=== PATIENT | male | born 1990 | race African-American/Black ===

== ENCOUNTER 2022-08-06 01:52 | Emergency (ER) | payer MEDICAID, OTHER ==
[~2022-08-06] VITALS: Ht 180.3 cm; Wt 78.0 kg
[2022-08-06] MEDS ORDERED: ONDANSETRON HCL 4MG/2ML INJ IV STA (02:26)
[2022-08-06] MEDS ORDERED: MORPHINE SULFATE 4 MG/ML CPJ (NOT FOR IM USE) IV STA (02:26)
[2022-08-06] MEDS ORDERED: SODIUM CHLORIDE 0.9% 1,000 ML IV ONE (02:30)
[2022-08-06] MEDS ORDERED: BACITRACIN ZINC OINT UDPKT TOP ONE (02:30)
[2022-08-06] MEDS ORDERED: TETANUS, DIPHTHERIA, PERTUSSIS VAC/PF 0.5ML (>10YR OLD) IM ONE (02:30)
[2022-08-06] MEDS ORDERED: CEFAZOLIN 1000MG PREMIX 50 ML IV ONE (02:30)
[2022-08-06 03:18] LABS: BASOPHILS % 0.6 % (0.0-2.0); CHLORIDE 107 mEq/L (98-107); EOSINOPHILS % 0.6 % (0.0-5.0); HEMATOCRIT. 44.1 % (42.0-52.0); HEMOGLOBIN. 14.2 g/dL (14.0-18.0); LYMPHOCYTES % 40.1 % (20.0-50.0); MEAN CORPUSCULAR HEMOGLOBIN 29.6 pg (28.0-32.0); MEAN PLATELET VOLUME 7.2 fl (7.4-10.4); MONOCYTES % 9.2 % (2.0-8.0); NEUTROPHILS % 49.5 % (40.0-76.0); PLATELET 301 x1000/uL (130-400); RED BLOOD CELL COUNT 4.79 mill/uL (4.7-6.1); RED CELL DISTRIBUTION WIDTH 15.2 % (11.6-14.6)
[2022-08-06] MEDS: CEFAZOLIN 1000MG PREMIX 50 ML IV NR ×2 (03:48→04:09)
[2022-08-06] MEDS ORDERED: MIDAZOLAM HCL 2 MG/2 ML VIAL IV ONE (04:00)
[2022-08-06] MEDS ORDERED: ONDANSETRON HCL 4MG/2ML INJ IV ONE (04:45)
[2022-08-06] MEDS ORDERED: KETAMINE HCL 50 MG/ML 10ML IV ONE ×3 (04:45→06:15)
[2022-08-06] MEDS ORDERED: IOHEXOL-300 100 ML BOTTLE ONE (06:41)
[2022-08-06 08:44] LABS: CHLORIDE 106 mEq/L (98-107)
[2022-08-06] MEDS: AMPICILLIN SOD/SULBACTAM NA 3 G in SODIUM CHLORIDE 0.9% 100 ML IV SCH ×2 (15:00→22:00)
[2022-08-06] MEDS ORDERED: NALOXONE HCL 0.4MG/ML VIAL IV PRN (15:00)
[2022-08-06] MEDS ORDERED: ONDANSETRON 4MG ODT PO PRN (15:00)
[2022-08-06] MEDS: HYDROCODONE/ACETAMINOPHEN 5/325MG TABLET PO PRN ×2 (17:46→22:21)
[2022-08-07] MEDS: HYDROCODONE/ACETAMINOPHEN 5/325MG TABLET PO PRN ×2 (01:15→03:37)
[2022-08-07 03:37] VITALS: BP 96/59
== END 2022-08-07 05:18 | disposition short-term general hospital (02) ==
LOC: ER 01:52
DX: S01.112A Laceration without foreign body of left eyelid and periocular area, initial encounter (principal); R51.9 Headache, unspecified; Z20.822 Contact with and (suspected) exposure to COVID-19; V49.9XXA Car occupant (driver) (passenger) injured in unspecified traffic accident, initial encounter; Y93.89 Activity, other specified; Y92.89 Other specified places as the place of occurrence of the external cause; Y99.8 Other external cause status
CPT/HCPCS: 12011; 36415; 70450; 70486; 71045; 72125; 72170; 72192; 73562; 73700; 74177; 80048; 85025; 87426; 90715; 99152; 99291; C9803; J0295; J0690; J2250; J2270; J2405; J3490; J7030; J7050; Q0162; Q9967; Z7610

== ENCOUNTER 2023-03-13 08:51 | Emergency (ER) | payer MEDICAID, OTHER ==
[~2023-03-13] VITALS: Ht 177.8 cm; Wt 60.0 kg
[2023-03-13 09:04] VITALS: BP 117/77; PULSE 81; RESP 19; TEMP 98.1
[2023-03-13] MEDS ORDERED: LIDOCAINE HCL/PF 1% 10 MG/ML 5ML VIAL INFIL ONE (10:00)
== END 2023-03-13 10:26 | disposition home or self-care (01) ==
LOC: ER 08:51
DX: S63.287A Dislocation of proximal interphalangeal joint of left little finger, initial encounter (principal); X58.XXXA Exposure to other specified factors, initial encounter; Y93.89 Activity, other specified; Y92.89 Other specified places as the place of occurrence of the external cause; Y99.8 Other external cause status
CPT/HCPCS: 99285; 26770; 73140; 99152; J3490; 99284

== ENCOUNTER 2024-01-06 22:14 | Emergency (ER) | payer MEDICAID ==
[~2024-01-06] VITALS: Ht 177.8 cm; Wt 68.0 kg
[2024-01-06 22:46] VITALS: BP 109/71; PULSE 74; RESP 18; TEMP 98; O2SAT 100
[2024-01-07] MEDS ORDERED: TOPUD PO
== END 2024-01-07 00:20 | disposition home or self-care (01) ==
LOC: ER 22:14
DX: M79.645 Pain in left finger(s) (principal)
CPT/HCPCS: 73130; 99283

== ENCOUNTER 2024-10-19 07:39 | Emergency (ER) | payer MEDICAID, OTHER ==
[~2024-10-19] VITALS: Ht 180.3 cm; Wt 68.0 kg
[~2024-10-19 07:39] MED LIST: TOPUD PO
[2024-10-19 07:49] VITALS: O2SAT 98
[2024-10-19 07:50] VITALS: BP 114/51; PULSE 73; RESP 14; TEMP 36.9; O2SAT 97
[2024-10-19] MEDS ORDERED: METH-653 MT (08:06)
[2024-10-19] MEDS: IBUPROFEN 600MG TABLET PO ONE (08:17)
== END 2024-10-19 08:21 | disposition home or self-care (01) ==
LOC: ER 08:13
DX: M54.50 Low back pain, unspecified (principal); F10.90 Alcohol use, unspecified, uncomplicated; Z79.899 Other long term (current) drug therapy; Z98.890 Other specified postprocedural states; Y90.9 Presence of alcohol in blood, level not specified
CPT/HCPCS: 99283

== ENCOUNTER 2025-05-27 09:19 | Inpatient (IN) | payer MEDICAID, OTHER ==
[~2025-05-27] VITALS: Ht 172.7 cm; Wt 63.5 kg
[~2025-05-27 09:19] MED LIST changes: +METH-653 MT
[2025-05-27 09:31] VITALS: O2SAT 95
[2025-05-27] MEDS: OXYCODONE HCL/ACETAMINOPHEN 5/325MG TABLET PO ONE (10:49)
[2025-05-27 11:57] LABS: HEMATOCRIT. 44.5 % (42.0-52.0); HEMOGLOBIN. 14.6 g/dL (14.0-18.0); MEAN PLATELET VOLUME 6.9 fl (7.4-10.4); PLATELET 285 x1000/uL (130-400); RED BLOOD CELL COUNT 5.10 mill/uL (4.7-6.1); RED CELL DISTRIBUTION WIDTH 14.6 % (11.6-14.6)
[2025-05-27 12:14] LABS: ETHANOL BLOOD < 10 mg/dL (<10); TROPONIN I HIGH SENSITIVITY < 4 ng/L (3.0-53)
[2025-05-27 12:15] LABS: CREATININE 1.2 mg/dL (0.6-1.3); PROTEIN TOTAL 7.4 g/dL (6.0-8.3); UREA NITROGEN BLOOD 9 mg/dL (9-23)
[2025-05-27 12:17] LABS: ASPARTATE AMINOTRANSFERASE 31 IU/L (<34); BILIRUBIN TOTAL 0.3 mg/dL (0.1-1.0)
[2025-05-27 16:00] VITALS: BP 105/65; PULSE 95; RESP 20; TEMP 36.8; O2SAT 100
[2025-05-27] MEDS: ACETAMINOPHEN 325MG TABLET PO PRN (16:24)
[2025-05-27] MEDS: CEFTRIAXONE 1GM/50ML 50 ML IV SCH (16:24)
[2025-05-27] MEDS: KETOROLAC 30MG/ML VIAL IV PRN (17:24)
[2025-05-27 18:21] LABS: LYMPHOCYTES % MANUAL 9.0 % (20.0-50.0); MONOCYTES % MANUAL 6.0 % (2.0-8.0); NEUTROPHILS % MANUAL 85.0 % (45.0-75.0); PLATELET ESTIMATE NORMAL
[2025-05-27 20:00] VITALS: BP_SYST 83; PULSE 83; RESP 18; TEMP 36.4; O2SAT 96
[2025-05-28] VITALS: BP 109/67; PULSE 91; RESP 18; TEMP 36.7; O2SAT 97
[2025-05-28] MEDS: VANCOMYCIN 1G PREMIX 200 ML IV NR (01:00)
[2025-05-28 04:00] VITALS: BP 103/69; PULSE 73; RESP 18; TEMP 36.1; O2SAT 97
[2025-05-28] MEDS ORDERED: VANCOMYCIN 750MG PREMIX 150 ML IV SCH (07:00)
[2025-05-28 08:00] VITALS: BP 115/69; PULSE 93; RESP 18; TEMP 36.7; O2SAT 98
[2025-05-28 08:12] LABS: HEMATOCRIT. 46.0 % (42.0-52.0); HEMOGLOBIN. 15.0 g/dL (14.0-18.0); MEAN PLATELET VOLUME 7.7 fl (7.4-10.4); PLATELET 268 x1000/uL (130-400); RED BLOOD CELL COUNT 5.25 mill/uL (4.7-6.1); RED CELL DISTRIBUTION WIDTH 14.8 % (11.6-14.6)
[2025-05-28] MEDS: VANCOMYCIN 1G PREMIX 200 ML IV SCH (11:00)
[2025-05-28 12:00] VITALS: BP 109/67; PULSE 90; RESP 18; TEMP 36.7; O2SAT 96
[2025-05-28 15:40] LABS: EOSINOPHILS % MANUAL 1.0 % (0.0-5.0); LYMPHOCYTES % MANUAL 10.0 % (20.0-50.0); NEUTROPHILS % MANUAL 89.0 % (45.0-75.0); PLATELET ESTIMATE NORMAL
[2025-05-28 16:00] VITALS: BP 109/67; PULSE 90; RESP 18; TEMP 36.7; O2SAT 96
[2025-05-28 20:00] VITALS: BP 103/64; PULSE 92; RESP 16; TEMP 37.2; O2SAT 94
[2025-05-29] VITALS: BP 115/80; PULSE 84; RESP 16; TEMP 37.1; O2SAT 97
[2025-05-29 08:00] VITALS: BP 98/64; PULSE 92; RESP 16; TEMP 37.2; O2SAT 96
[2025-05-29 10:27] LABS: HEMATOCRIT. 39.3 % (42.0-52.0); HEMOGLOBIN. 13.3 g/dL (14.0-18.0); MEAN PLATELET VOLUME 7.6 fl (7.4-10.4); PLATELET 264 x1000/uL (130-400); RED BLOOD CELL COUNT 4.54 mill/uL (4.7-6.1); RED CELL DISTRIBUTION WIDTH 14.8 % (11.6-14.6)
[2025-05-29 10:42] LABS: CREATININE 1.0 mg/dL (0.6-1.3); UREA NITROGEN BLOOD 22 mg/dL (9-23)
[2025-05-29] MEDS ORDERED: AMOX1TAB16 MT (11:41)
[2025-05-29] MEDS ORDERED: SULF1TAB48 MT (11:41)
[2025-05-29 12:00] VITALS: BP 98/61; PULSE 85; RESP 18; TEMP 36.7; O2SAT 98
[2025-05-29 16:00] VITALS: BP 99/64; PULSE 82; RESP 16; TEMP 36.4; O2SAT 96
[2025-05-29] MEDS: VANCOMYCIN 1.25GM/250ML IV SCH (18:33)
[2025-05-29 20:50] LABS: LYMPHOCYTES % MANUAL 3.0 % (20.0-50.0); MONOCYTES % MANUAL 13.0 % (2.0-8.0); NEUTROPHILS % MANUAL 84.0 % (45.0-75.0); PLATELET ESTIMATE NORMAL
[2025-05-30] VITALS: BP 103/59; PULSE 72; RESP 18; O2SAT 96
[2025-05-30 05:49] LABS: HEMATOCRIT. 40.1 % (42.0-52.0); HEMOGLOBIN. 13.0 g/dL (14.0-18.0); MEAN PLATELET VOLUME 7.4 fl (7.4-10.4); PLATELET 300 x1000/uL (130-400); RED BLOOD CELL COUNT 4.63 mill/uL (4.7-6.1); RED CELL DISTRIBUTION WIDTH 14.9 % (11.6-14.6)
[2025-05-30 05:58] LABS: CREATININE 0.9 mg/dL (0.6-1.3); UREA NITROGEN BLOOD 17 mg/dL (9-23)
[2025-05-30 12:00] VITALS: BP 94/68; PULSE 73; RESP 19; TEMP 36.6; O2SAT 100
[2025-05-30 16:00] VITALS: BP 99/60; PULSE 95; RESP 18; TEMP 37.3; O2SAT 99
[2025-05-30 20:00] VITALS: BP 98/63; PULSE 91; RESP 18; TEMP 37.9; O2SAT 98
[2025-05-30] MEDS: HYDROCODONE/ACETAMINOPHEN 5/325MG TABLET PO PRN (23:30)
[2025-05-31] VITALS: BP 98/57; PULSE 76; RESP 18; TEMP 37.4; O2SAT 99
[2025-05-31 04:00] VITALS: BP 94/55; PULSE 59; RESP 16; TEMP 36.5; O2SAT 98
[2025-05-31 08:00] VITALS: BP 108/66; PULSE 87; RESP 15; TEMP 36.6; O2SAT 100
[2025-05-31 08:00] LABS: CREATININE 0.9 mg/dL (0.6-1.3); UREA NITROGEN BLOOD 12 mg/dL (9-23)
[2025-05-31 08:01] LABS: BASOPHILS % 0.1 % (0.0-2.0); EOSINOPHILS % 1.2 % (0.0-5.0); HEMATOCRIT. 38.1 % (42.0-52.0); HEMOGLOBIN. 12.7 g/dL (14.0-18.0); LYMPHOCYTES % 9.9 % (20.0-50.0); MEAN PLATELET VOLUME 7.5 fl (7.4-10.4); MONOCYTES % 10.6 % (2.0-8.0); NEUTROPHILS % 78.2 % (40.0-76.0); PLATELET 330 x1000/uL (130-400); RED BLOOD CELL COUNT 4.41 mill/uL (4.7-6.1); RED CELL DISTRIBUTION WIDTH 14.2 % (11.6-14.6)
[2025-05-31 08:33] LABS: CLARITY URINE CLEAR (CLEAR); COLOR URINE YELLOW (YELLOW); GLUCOSE URINE NEGATIVE (NEGATIVE); KETONES URINE NEGATIVE (NEGATIVE); LEUKOCYTE ESTERASE URINE NEGATIVE (NEGATIVE); NITRITE URINE NEGATIVE (NEGATIVE); OCCULT BLOOD URINE NEGATIVE (NEGATIVE); PH URINE 6.5 (4.5-8.0); PROTEIN URINE NEGATIVE (NEGATIVE); SPECIFIC GRAVITY URINE 1.012 (1.005-1.030); UROBILINOGEN URINE 0.2 E.U./dL (0.2-1.0)
[2025-05-31 08:55] LABS: *AMPHETAMINES SCREEN URINE NEGATIVE (NEGATIVE)
[2025-05-31 08:56] LABS: *BARBITURATES SCREEN URINE NEGATIVE (NEGATIVE); *BENZODIAZEPINES SCREEN URINE NEGATIVE (NEGATIVE); *COCAINE SCREEN URINE NEGATIVE (NEGATIVE); CANNABINOID URINE SCREEN NEGATIVE (NEGATIVE); ECSTASY MDMA SCREEN URINE NEGATIVE (NEGATIVE); METHADONE URINE SCREEN NEGATIVE (NEGATIVE); OPIATES URINE SCREEN PRESUMPTIVE POSITIVE (NEGATIVE); PHENCYCLIDINE URINE SCREEN NEGATIVE (NEGATIVE)
[2025-05-31 12:00] VITALS: BP 105/65; PULSE 83; RESP 15; TEMP 36.3; O2SAT 94
[2025-05-31 16:55] VITALS: BP 93/56; PULSE 79; RESP 17; TEMP 36.5; O2SAT 99
[2025-05-31] MEDS ORDERED: NALOXONE HCL 0.4MG/ML VIAL IV PRN (17:15)
[2025-05-31 17:46] LABS: LYMPHOCYTES % MANUAL 12.0 % (20.0-50.0); MONOCYTES % MANUAL 15.0 % (2.0-8.0); NEUTROPHILS % MANUAL 73.0 % (45.0-75.0); PLATELET ESTIMATE NORMAL
[2025-05-31] MEDS: VANCOMYCIN 1G PREMIX 200 ML IV SCH (17:51)
[2025-05-31 20:00] VITALS: BP 100/69; PULSE 82; RESP 18; TEMP 36.4; O2SAT 98
[2025-06-01] VITALS: BP 103/68; PULSE 74; RESP 16; TEMP 36.3; O2SAT 98
[2025-06-01 04:00] VITALS: BP 102/67; PULSE 77; RESP 18; TEMP 36.5; O2SAT 99
[2025-06-01 08:00] VITALS: BP 141/66; PULSE 70; RESP 18; TEMP 37.1; O2SAT 100
[2025-06-01 11:41] LABS: BASOPHILS % 0.4 % (0.0-2.0); EOSINOPHILS % 1.4 % (0.0-5.0); HEMATOCRIT. 38.4 % (42.0-52.0); HEMOGLOBIN. 12.6 g/dL (14.0-18.0); LYMPHOCYTES % 13.6 % (20.0-50.0); MEAN PLATELET VOLUME 7.0 fl (7.4-10.4); MONOCYTES % 12.3 % (2.0-8.0); NEUTROPHILS % 72.3 % (40.0-76.0); PLATELET 436 x1000/uL (130-400); RED BLOOD CELL COUNT 4.44 mill/uL (4.7-6.1); RED CELL DISTRIBUTION WIDTH 14.7 % (11.6-14.6)
[2025-06-01 12:00] VITALS: BP 103/67; PULSE 74; RESP 18; TEMP 36.7; O2SAT 100
[2025-06-01] MEDS ORDERED: PHENOBARBITAL 60MG TABLET PO PRN (15:45)
[2025-06-01] MEDS ORDERED: PHENOBARBITAL 30 MG TABLET PO PRN ×2 (15:45)
[2025-06-01] MEDS ORDERED: LORAZEPAM 1MG TABLET PO PRN ×3 (15:45)
[2025-06-01] MEDS ORDERED: CHLORDIAZEPOXIDE 25MG CAPSULE PO PRN ×3 (15:45)
[2025-06-01 16:00] VITALS: BP 123/60; PULSE 74; RESP 18; TEMP 36.8; O2SAT 100
[2025-06-01 20:00] VITALS: BP 126/66; PULSE 80; RESP 18; TEMP 36.3; O2SAT 100
[2025-06-02] VITALS: BP 126/66; PULSE 80; RESP 18; TEMP 36.3; O2SAT 100
[2025-06-02 04:00] VITALS: BP 97/61; PULSE 61; RESP 18; TEMP 36.3; O2SAT 98
[2025-06-02 07:10] LABS: BASOPHILS % 0.5 % (0.0-2.0); EOSINOPHILS % 1.5 % (0.0-5.0); HEMATOCRIT. 39.7 % (42.0-52.0); HEMOGLOBIN. 13.0 g/dL (14.0-18.0); LYMPHOCYTES % 16.4 % (20.0-50.0); MEAN PLATELET VOLUME 6.8 fl (7.4-10.4); MONOCYTES % 10.5 % (2.0-8.0); NEUTROPHILS % 71.1 % (40.0-76.0); PLATELET 532 x1000/uL (130-400); RED BLOOD CELL COUNT 4.57 mill/uL (4.7-6.1); RED CELL DISTRIBUTION WIDTH 14.5 % (11.6-14.6)
[2025-06-02 07:32] LABS: CREATININE 0.8 mg/dL (0.6-1.3)
[2025-06-02 07:33] LABS: UREA NITROGEN BLOOD 11 mg/dL (9-23)
[2025-06-02 08:00] VITALS: BP 112/68; PULSE 66; RESP 18; TEMP 36.7; O2SAT 98
[2025-06-02] MEDS ORDERED: MULTIVITAMINS,THER W-MINERALS TABLET PO SCH (09:00)
[2025-06-02] MEDS ORDERED: THIAMINE HCL 100 MG/1 ML 2ML VIAL IM SCH (09:00)
[2025-06-02] MEDS ORDERED: FOLIC ACID 1MG TABLET PO SCH (09:00)
[2025-06-02 12:00] VITALS: BP 114/70; PULSE 68; RESP 19; TEMP 36.7; O2SAT 98
[2025-06-02 16:00] VITALS: BP 105/65; PULSE 80; RESP 19; TEMP 36.3; O2SAT 98
[2025-06-02 20:00] VITALS: BP 93/58; PULSE 96; RESP 20; TEMP 36.3; O2SAT 96
[2025-06-03 04:00] VITALS: BP 105/64; PULSE 64; RESP 18; TEMP 36.4; O2SAT 98
[2025-06-03 08:00] VITALS: BP 102/55; PULSE 65; RESP 18; TEMP 36.2; O2SAT 99
[2025-06-03 16:16] VITALS: BP 103/58; PULSE 73; RESP 19; TEMP 36.3; O2SAT 98
[2025-06-03 20:00] VITALS: BP 92/59; PULSE 77; RESP 20; TEMP 36.6; O2SAT 98
[2025-06-04] VITALS: BP 92/55; PULSE 67; RESP 20; TEMP 36.4; O2SAT 96
[2025-06-04 04:00] VITALS: BP 99/60; PULSE 70; RESP 20; TEMP 36.5; O2SAT 99
[2025-06-04 08:00] VITALS: BP 102/67; PULSE 72; RESP 20; TEMP 37.1; O2SAT 99
[2025-06-04] MEDS ORDERED: THIAMINE HCL 100MG TABLET PO SCH (09:00)
[2025-06-04] MEDS: HALOPERIDOL LACTATE 5MG/ML VIAL IM PRN (09:07)
[2025-06-04 11:09] LABS: CREATININE 0.8 mg/dL (0.6-1.3); UREA NITROGEN BLOOD 15 mg/dL (9-23)
[2025-06-04 11:43] VITALS: BP 102/61; PULSE 72; RESP 20; TEMP 98.1
== END 2025-06-04 12:17 | disposition home or self-care (01) | DRG 720 ==
LOC: ER 09:19 → 5WST 13:41 → EDBEDREQTM 13:43 → EDBEDREQ 13:43 → 6EST 05-31 16:30
PROVIDERS: ADMIT Internal Medicine; ATTEND Internal Medicine
DX: A41.9 Sepsis, unspecified organism (principal); F17.210 Nicotine dependence, cigarettes, uncomplicated; L03.114 Cellulitis of left upper limb; R53.1 Weakness; S51.002A Unspecified open wound of left elbow, initial encounter; X58.XXXA Exposure to other specified factors, initial encounter; Y93.89 Activity, other specified; Y92.89 Other specified places as the place of occurrence of the external cause; Y99.8 Other external cause status; Z91.199 Patient's noncompliance with other medical treatment and regimen due to unspecified reason
CPT/HCPCS: 36415; 73030; 80048; 80053; 80202; 80305; 80307; 80320; 80329; 81003; 84145; 84484; 85025; 93005; 99285; A4606; J0696; J1630; J1885; J3373; G0480